=== PATIENT | female | born 1995 | race Caucasian/White ===

== ENCOUNTER 2025-04-22 09:43 | Outpatient (CLI) | payer OTHER, SELFPAY ==
[2025-04-22 10:13] VITALS: BP 112/72; PULSE 55; O2SAT 99
[2025-04-22 10:23] VITALS: RESP 12; TEMP 36.9
[2025-04-22] MEDS: TERBUTALINE 1 MG/ML INJ 0.25 MG SUBCUT (11:08)
--- NOTE | 2025-04-22 12:13 | P.OBO_ITS ---
OB Outpatient HPI History of Present Illness Date Seen: 04/22/25 History of Present Illness: 29 year old at 37 weeks, 1 day gestation, FORTUNATO 05/13, presents for external cephalic version for breech presentation at term. She has received care from Dr. Zhang this . See my clinic consult note for full detail. Bedside ultrasound confirms shelia breech presentation with back anterior and in the midline. Procedure note: External cephalic version The patient and I previously discussed risks of procedure. Bedside ultrasound was confirmed with findings as noted above. Patient was given IM terbutaline 10 minutes prior to procedure to aid in uterine relaxation. With patient in supine position, a clockwise rotation of the body was attempted once, and a counter clockwise rotation was attempted twice. Was able to bring the head to a transverse position, but was unable to move the breech. Fetus reverted to breech presentation after each of these 3 attempts. monitoring before and after the procedure was reassuring. Patient tolerated the procedure well. Meds Home Medications and Allergies Home Medications ?Medication ?Instructions ?Recorded ?Confirmed ?Type docosahexaenoic acid 200 mg See Rx Instructions PO ABIGAIL LY 06/13/24 04/22/25 History capsule ( DHA) ferrous sulfate 325 mg (65 mg 325 mg PO Q1D 04/18/25 0 04/22/25 History iron) tablet Allergies Allergy/AdvReac Type Severity Reaction Status Date / Time aspirin AdvReac Verified 04/22/25 10:25 [facility] Social History Smoking Status: Never smoker History History 1 Elective abortions Para 0 Spontaneous abortions Hx # Term Pregnancies Ectopic pregnancies Hx # Pregnancies Multiple births Number of Living Children 0 OB - H&P: Exam Physical Exam Vital signs: Temp Pulse Resp BP Pulse Ox 98.5 F 55 L 12 112/72 99 04/22/25 10:23 04/22/25 10:13 04/22/25 10:23 04/22/25 10:13 04/22/25 10:13 Assessment and Plan Assessment and plan (1) Breech presentation of fetus: Status: Acute Plan Now status post unsuccessful attempt at external cephalic version. Our plan is now primary for breech presentation. Scheduling request was submitted for May 05, on which day the patient will be 39 weeks gestation. We discussed risks of , including bleeding/hemorrhage, infection, damage to internal organs, thromboembolism, uterine scarring, effect on future pregnancies, likely postoperative restrictions and precautions. Consent form was reviewed with and signed by patient.
--- NOTE | 2025-04-22 12:18 | PC.OBNST ---
NST Note NST Note Start: 04/22/25 09:57 Freq: ONCE Status: Active Protocol: Document 04/22/25 12:16 LLB (Rec: 04/22/25 12:18 LLB No Response) NST Note 1 Para (# of births) 0 EDC 05/12/25 Gestational Age In 37 Weeks & 1 Days Weeks & Days Patient Presented Other with Complaint(s) of Other Complaints ECV Reactive Yes Rosalinda Acevedo Date 04/22/25 Reactive Yes RN Yessenia Arevalo RN Date 04/22/25 OB NST charge Yes Complete NST Note Yes via Write Note The provider's electronic signature indicates the NST is reactive/appropriate for gestational age. *Note to provider: If an addendum is required, open the patient's chart and click on the note under the Nurse/Allied Health tab.
== END 2025-04-22 12:15 | disposition home or self-care (01) ==
LOC: OB CLI 09:51 → OB 10:08
PROVIDERS: PCP Family Medicine; Visit Provider Obstetrics & Gynecology
DX: O32.1XX0 Maternal care for breech presentation, not applicable or unspecified (principal); Z3A.37 37 weeks gestation of pregnancy
CPT/HCPCS: 59025; 59412; 76815; G0463; J3105

== ENCOUNTER 2025-04-23 15:04 | Inpatient (IN) | payer OTHER, SELFPAY ==
[2025-04-23] VITALS (20 sets, daily range): BP systolic 103–133; BP diastolic 62–83; PULSE 47–75; RESP 16–20; TEMP 36.4–37; O2SAT 95–100; BMI 25.8
[2025-04-23 14:46] LABS: Amnisure Rom* POSITIVE
--- NOTE | 2025-04-23 15:13 | P.OBHP_ITS ---
OB - H&P: HPI History of Present Illness Chief complaint: maternity Narrative: Shira Perea is a 29 year old at 37w1d GA who presents for PROM. is complicated by breech malpresentation, s/p unsuccessful external cephalic version yesterday. She has received her care with Dr. Tidwell of [facility]. is otherwise complicated by anemia (result on p.o. iron), left renal pyelectasis measuring 4 mm at 21 weeks and HC<10%. She underwent a level 2 ultrasound due to concerns about the baby's head size and kidneys. The initial scan showed no issues with the head, and a recheck at 32 weeks confirmed that the kidneys were also normal. She has had a normal level 2 anatomy scan, which showed a posterior placenta without previa. Shira notes onset of spontaneous large volume leaking of clear fluid at about 1415 this afternoon. She has had persistent leaking since that time, with only rare sensation of slight cramping. Denies any regular painful contractions or vaginal bleeding. Endorses active movement. Presentation to care, impression of the bedside nurse was for gross rupture of membranes. Patient was reporting some rectal pressure, where a cervical exam was performed confirming dilation of 2cm/thick/-1. AmniSure was obtained and found to be positive. [facility] Social History What is your current living situation?: I presently have a place to live Problems where you live: no known problems In the past 12 months, utilities in danger of being shut off: no In past 12 months, lack of transportation kept you from medical appts, meetings, work, or getting things needed for daily living: no In the past 12 mos, have been you worried that your food would run out before you had money to buy more?: never true In the past 12 mos, the food you bought just didn't last and you didn't have money to buy more?: never true Smoking Status: Never smoker How often does anyone, including family, friends and others, physically hurt you : never How often does anyone, including family, friends and others, insult or talk down to you: never How often does anyone, including family, friends and others, threaten you with harm: never How often does anyone, including family, friends and others, scream or curse at you: never Meds Home Medications and Allergies Home Medications ?Medication ?Instructions ?Recorded ?Confirmed ?Type docosahexaenoic acid 200 mg See Rx Instructions PO ABIGAIL LY 06/13/24 04/23/25 Histo ry capsule ( DHA) ferrous sulfate 325 mg (65 mg 325 mg PO Q1D 04/18/25 0 04/23/25 History iron) tablet Allergies Allergy/AdvReac Type Severity Reaction Status Date / Time aspirin AdvReac Verified 04/22/25 10:25 OB - H&P: Exam Physical Exam: Vital signs: Temp Pulse BP Pulse Ox 98.4 F 64 116/83 100 04/23/25 14:39 04/23/25 14:29 04/23/25 14:29 04/23/25 14:37 Narrative: Physical exam: General: No acute distress Psych: Alert and oriented x3, full affect Heart: Regular rate and rhythm, no murmur rub or gallop Lungs: Clear to auscultation bilaterally Abdomen: Gravid. Otherwise soft and nontender. heart rate: Reactive NST. Baseline of 130 beats per minute, moderate variability, accelerations present, decelerations absent. Cervix: 2/thick/-1 Presentation: Breech malpresentation confirmed by transabdominal ultrasound Amnisure positive Assessment and Plan Assessment and plan (1) Breech presentation of fetus: Status: Acute (2) Premature rupture of membranes: Status: Acute (3) Anemia affecting first : Status: Acute Plan Shira is a 29yo at 37w1d admitted for pre labor rupture of membranes in the setting of breech malpresentation. is complicated by malpresentation s/p unsuccessful ECV yesterday, anemia (resolve with PO iron) and renal pyelectasis (resolved). She is an established patient of [facility]. On arrival, rupture of membranes is confirmed by AmniSure. Patient was reporting some rectal pressure, where nurse did check her cervix and is noted to be 2/long/-1. Reactive NST. Breech presentation confirmed on transabdominal ultrasound. We discussed my recommendation to proceed with an unscheduled primary delivery. Discussed risk/benefits and alternatives to procedure in detail, where written consent was previously signed yesterday. After discussion, she affirms her desire to proceed and I initialed her consent. Her is en route from home, where we will proceed upon his arrival unless there were a change in maternal/ status sooner. All questions answered. - Proceed with primary C/S upon arrival of patient's partner - Obtain type and screen and CBC on admission. - Plan perioperative Ancef and azithromycin in the setting of PROM - EFW by US on 03/21 was 73%ile - Dr. Triplett of [facility] to attend delivery in the setting of unscheduled and breech presentation
[2025-04-23 15:34] LABS: Hematocrit 36.2 % (33.0-51.0); Hemoglobin* 12.2 gm/dL (12.0-16.0); Immature Granulocytes Abs Auto 0.11 K/uL (0.00-0.30); Immature Granulocytes Pct Auto 1.1 %; Lymphocytes Absolute Auto 2.26 K/uL (0.90-2.90); Mean Corpuscular HGB Conc 34 gm/dL (32-36); Mean Corpuscular Hemoglobin 34 pg (26-34); Mean Corpuscular Volume 101 fL (80-100); RDW Coefficient of Variation % 12.8 % (11.5-15.5); Red Blood Count 3.60 m/uL (4.00-5.20); Slide Review Reflex No; White Blood Count* 10.38 K/uL (4.50-11.00)
[2025-04-23] MEDS: AZITHROMYCIN 500 MG in 0.9 % SODIUM CHLORIDE 250 ml 250 ML 255 MG IVPB (16:02)
--- NOTE | 2025-04-23 16:11 | P.ANES_ITS ---
Anesthesia Charges Start Date/Time Anesthesia Start Date: 04/23/25 Anesthesia Start Time: 15:45 Stop Date/Time Anesthesia Stop Date: 04/23/25 Anesthesia Stop Time: 17:13 Summary Emergency: ANNE MARIE Coding CPT Codes CPT Codes: ANESTH CS DELIVERY - 22500 ([id number]) P2 - PATIENT W/MILD SYST DISEASE, QK - MANAGER COMMERCIAL 2-4 CNCRNT ANES PROC, QX - ROUGE SIFTER SVC W/ MD MED DIRECTION Additional Codes: Summary - Emergency: ANNE MARIE ([id number])
--- NOTE | 2025-04-23 16:11 | W.ANESCHARGE ---
Anesthesia Charges Start Date/Time Anesthesia Start Date: 04/23/25 Anesthesia Start Time: 15:45 Stop Date/Time Anesthesia Stop Date: 04/23/25 Anesthesia Stop Time: 17:13 Summary Emergency: ANN EMARIE Coding CPT Codes CPT Codes: ANESTH CS DELIVERY - 22003 ([id number]) P2 - PATIENT W/MILD SYST DISEASE, QK - RN TRANSPLANT 2-4 CNCRNT ANES PROC, QX - SIGNS SALES REPRESENTATIVE SVC W/ MD MED DIRECTION Additional Codes: Summary - Emergency: ANNE MARIE ([id number])
--- NOTE | 2025-04-23 16:29 | SUR.OPER ---
PATIENT BROUGHT TO OR #5 PER AMBULATION BY OB RN Patient positioned supine on OR #5 bed WITH A BUMP UNDER THE RIGHT HIP. Final approval of positioning by surgeon.
--- NOTE | 2025-04-23 16:30 | AC.NBPDANNP1 ---
Provider Attendance Delivery Provider Attend Delivery Date Seen: 04/23/25 Delivery Attendance Summary Summary: Baby rip Perea born at 37.2w GA via primary section for breech presentation. Called to Center for primary after SROM at home. Patient had failed version yesterday (04/22). Apgars appropriate. Spontaneous breathing with only stimulation. Baby stayed with parents. Gestational Age at Weeks Gestation At Delivery (32.0 - 42.0): 37.2 Delivery Amniotic membrane fluid description: Clear Gender: Female
--- NOTE | 2025-04-23 16:47 | SUR.OPER ---
SURGEON DECLINES OFFER TO SEND THE PLACENTA TO PATHOLOGY.
--- NOTE | 2025-04-23 16:59 | P.OBPRC_ITS ---
Procedure Time Seen by Provider: 16:59 Date of procedure: 04/23/25 Pre-op diagnosis: Breech malpresentation, prelabor rupture of membranes Post-op diagnosis: same Procedure Done: Global Will [facility] bill your pro fee for this procedure?: Yes Blood Loss Measurement Type: QBL (516) Bakri Used: No IV fluids (mL): 900 Urine Output (mL): 175 Urine Output Comment: yellow, clear Surgeon: Matt Moreno MD Anesthesia Type: Spinal Findings: Liveborn female infant, shelia breech presentation Unremarkable uterus, bilateral fallopian tubes and ovaries Procedure Name: Primary delivery Procedure Description: Patient was taken to the operating room with IV running. She received cefazolin and azithromycin in preoperative prophylaxis. Spinal anesthesia was administered. Flaherty catheter was inserted. She was prepped and draped in the usual sterile fashion. Anesthesia was tested and found to be adequate. A low-transverse skin incision was made with a scalpel and carried through to the underlying layer of fascia with the scalpel. The subcutaneous fat was dissected off the underlying fascia with Bovie and blunt dissection. The fascia was nicked in the midline with a scalpel, and this incision was extended laterally with scissors. The rectus muscles were in the midline. Pe ritoneum was identified and entered bluntly. Bovie was used to widen this opening laterally. Derek O retractor was inserted and tightened down, providing excellent visualization of the lower uterine segment. The bladder reflection was found to be well below the planned site for hysterotomy. Low-transverse uterine incision was made with a scalpel. Incision was widened bluntly. The infant's butt was grasped through the hysterotomy in direct sacrum anterior position and elevated to the hysterotomy. Fundal pressure was applied in order to facilitate delivery of the body, where legs were noted to be extended where Pinard maneuver was utilized to gently facilitate flexion of the knee and delivery of the lower extremities. Body was delivered to the level of the scapula, where body was rotated and the anterior arm was swept down and out to deliver the right arm via Loveset maneuver. Baby was rotated 180 degrees, where the same was performed to deliver the left arm. Fundal pressure was again applied and the head was flexed by applying gentle pressure on the maxilla where the head was delivered atraumatically.. No nuchal cord was noted. Baby was stimulated, where good tone was noted with grimace but no spontaneous cry at 30 seconds. Cord was clamped and cut after 30 seconds. was handed off to attending Pediatrics provider and nurses. The placenta was delivered with gentle traction on the cord. The uterus was cleaned of all clots and debris with the dry lap pad. The hysterotomy was reapproximated with 0 Vicryl in a running, locked fashion. Second layer of the same suture was used in imbricating fashion to obtain hemostasis. Excellent uterine tone was noted. The adnexa were examined and noted to be normal in appearance. The cul-de-sac and gutters were cleansed with dampened laparotomy sponge, removing any further clots and debris. The Derek O retractor was removed. The hysterotomy was reexamined and found to be hemostatic. The rectus muscles were examined and made hemostatic with electrocautery as needed. The fascia was reapproximated with 0 Vicryl in a running fashion. Subcutaneous fat was irrigated and Bovie used on oozing vessels. The subcutaneous fat was reapproximated with 2-0 viryl suture in an interrupted fashion. The skin was closed with a subcuticular stitch of 3-0 monocryl. Surgical glue was applied above this. Patient tolerated procedure well was taken to recovery area in stable condition. Surgical debrief was completed. details: - Liveborn female fetus - weight: 7 lb 14 oz, large for gestational age - APGARs were 8 and 9 at 1 and 5 minutes respectively Complications: None Pathology: none sent Surgery Debrief Performed: Yes Condition: stable Disposition: floor
--- NOTE | 2025-04-23 17:34 | W.PM.NB ---
Nerve Block Nerve Block Time Seen by Provider: 16:56 Date Seen: 04/23/25 Type of block requested by surgeon for post-operative analgesia: TAP Side: bilateral Time out performed: Yes Verification of patient name: Yes Verification of date of : Yes Name of person performing procedure: Yuridia Guidry Continuous monitoring Was continuous monitoring of O2 sat, B/P, cafeteria monitor, recorded every 15 minutes?: Yes Procedure Checklist: sterile prep, needles and gloves Ultrasound guided. Images saved: Yes Medications given in 5ml increments after negative aspiration: Marcaine %: 0.25 mL: 30 Needle gauge: 20 and Exparel mL: 10 Needle gauge: 20 Patient tolerated procedure well: Yes Block Charges Block Charge (with Pro Fee): TAP Bilateral Use of Ultrasound Machine for Block: Yes- US Guidance/pain block
--- NOTE | 2025-04-23 17:36 | P.ANES_ITS ---
Anesthesia Charges Start Date/Time Anesthesia Start Date: 04/23/25 Anesthesia Start Time: 15:45 Stop Date/Time Anesthesia Stop Date: 04/23/25 Anesthesia Stop Time: 17:13 Summary Emergency: VOICE PATHOLOGIST Coding CPT Codes CPT Codes: ANESTH CS DELIVERY - 45331 ([id number]) P2 - PATIENT W/MILD SYST DISEASE, QK - MICROGRINDER OPERATOR 2-4 CNCRNT ANES PROC, QX - VOICE PATHOLOGIST SVC W/ MD MED DIRECTION Additional Codes: Summary - Emergency: VOICE PATHOLOGIST ([id number])
--- NOTE | 2025-04-23 17:36 | W.ANESCHARGE ---
Anesthesia Charges Start Date/Time Anesthesia Start Date: 04/23/25 Anesthesia Start Time: 15:45 Stop Date/Time Anesthesia Stop Date: 04/23/25 Anesthesia Stop Time: 17:13 Summary Emergency: SLUMBER ROOM ATTENDANT Coding CPT Codes CPT Codes: ANESTH CS DELIVERY - 34503 ([id number]) P2 - PATIENT W/MILD SYST DISEASE, QK - TAX RECORD CLERK 2-4 CNCRNT ANES PROC, QX - SLUMBER ROOM ATTENDANT SVC W/ MD MED DIRECTION Additional Codes: Summary - Emergency: SLUMBER ROOM ATTENDANT ([id number])
[2025-04-24 03:10] VITALS: BP 119/66; PULSE 50; RESP 16; TEMP 36.7; O2SAT 96
[2025-04-24] MEDS: SODIUM CHLORIDE 0.9 % (FLUSH) 10 ML SYRINGE IVF (05:30)
[2025-04-24 06:16] LABS: Hemoglobin* 11.4 gm/dL (12.0-16.0)
--- NOTE | 2025-04-24 07:15 | P.OBPN_ITS ---
OB - PN:Subj Subjective Date Seen: 04/24/25 Narrative: Shira is a 29 year old who was admitted for SROM and proceeded to have a primary ? for breech.The patient feels well.? The pain is well controlled with current medications.? She has no new complaints.? Urinary output is adequate and she is voiding without difficulty.? Has a good appetite, is tolerating a general diet, is passing flatus, and has not had a bowel movement.? Has scant amount of rubra lochia.? She is ambulating slowly. She is and reports it is going well.? OB - PN: Obj Exam Physical Exam: Vital signs: Temp Pulse Resp BP Pulse Ox O2 Del Method 98.1 F 50 L 16 119/66 96 Room Air 04/24/25 03:10 04/24/25 03:10 04/24/25 03:10 04/24/25 03:10 04/24/25 03:10 04/24/25 03:10 Narrative: GENERAL APPEARANCE:? normal affect, alert, no distress MOOD:? appropriate CHEST:? clear to auscultation HEART:? regular rate and rhythm ABDOMEN:? soft, non-tender the uterine fundus is 1 cm below Umbilicus, Midline and is appropriate for the stage of recovery. EXTREMITIES:? normal and mild edema Incision: Surgical dressing intact with no surrounding erythema and no discharge on dressing. OB - PN: Obj Data Labs Labs: Laboratory Results - last 24 hr 04/23/25 04/23/25 04/24/25 14:42 15:13 05:54 WBC 10.38 RBC 3.60 L Hgb 12.2 11.4 L Hct 36.2 MCV 101 H MCH 34 MCHC 34 RDW Coeff of Tom 12.8 Plt Count 249 Neut % (Auto) 67.2 Lymph % (Auto) 21.8 [place] % (Auto) 9.0 Eos % (Auto) 0.5 Baso % (Auto) 0.4 Neut # (Auto) 6.99 Lymph # (Auto) 2.26 [place] # (Auto) 0.90 Eos # (Auto) 0.05 Baso # (Auto) 0.04 Abs Immat Gran (auto) 0.11 Imm/Tot Granulo (auto) 1.1 Membrane Rupture POSITIVE Blood Type AB Positive Antibody Screen NEGATIVE OB - PN: A/P Delivery Assessment and Plan (1) care and examination of lactating mother: Status: Acute (2) delivery indicated due to breech presentation: Status: Acute (3) Anemia affecting first : Status: Acute Plan Comments: PP day #1 Routine care May see as desired Anticipate discharge 04/25/2025
[2025-04-24 07:52] VITALS: BP 108/62; PULSE 51; RESP 16; TEMP 36.8; O2SAT 96
[2025-04-24] MEDS: ACETAMINOPHEN 500 MG TABLET 1000 MG PO ×3 (07:57→20:24)
[2025-04-24] MEDS: DOCUSATE SODIUM 100 MG CAPSULE PO (07:58)
[2025-04-24 12:16] VITALS: BP 115/70; PULSE 51; RESP 16; TEMP 36.4; O2SAT 98
[2025-04-24 15:10] VITALS: BP 111/74; PULSE 53; RESP 16; TEMP 36.8; O2SAT 100
[2025-04-24] MEDS: IBUPROFEN 600 MG TABLET PO (23:44)
[2025-04-24 23:59] VITALS: BP 100/61; PULSE 59; RESP 20; TEMP 36.5; O2SAT 99
[2025-04-25] MEDS: ACETAMINOPHEN 500 MG TABLET 1000 MG PO ×2 (03:28→10:08)
[2025-04-25] MEDS: IBUPROFEN 600 MG TABLET PO (06:21)
[2025-04-25 08:00] VITALS: BP 110/71; PULSE 60; RESP 16; TEMP 37.1; O2SAT 97
[2025-04-25] MEDS: DOCUSATE SODIUM 100 MG CAPSULE PO (08:05)
--- NOTE | 2025-04-25 08:33 | PM.OBDSVD1 ---
DS: Providers Provider Date Seen: 04/25/25 Date of admission: 04/23/25 15:04 Primary care physician: Dalia Tidwell DO Admitting Clinician: Raysa Moreno MD Attending Physician on discharge: Pete Suarez CNM Date of Discharge: 04/25/25 DS: Diagnosis Discharge Diagnosis (1) Status post delivery: Status: Acute (2) care and examination of lactating mother: Status: Acute Exam Narrative: Exam Narrative: VSS. ?Afebrile GENERAL APPEARANCE: ?normal affect, alert, no distress MOOD: ?appropriate HEENT: normocephalic, neck supple, full ROM CHEST: ?Symmetrical chest wall movement. ?Normal respiratory effort. ?Clear to auscultation HEART: ?regular rate and rhythm ABDOMEN: ?soft, non-tender. Uterine fundus is firm, at Umbilicus, Midline and is appropriate for the stage of recovery. ?Bowel sounds present. EXTREMITIES: ?normal and no edema SKIN: warm, dry. ? ?Incision clean/dry/well approximated. ?No signs of infection noted. Const: Vital Signs, click to edit/add: Vital Signs - 24 hr 04/24/25 12:16 04/24/25 15:10 04/24/25 23:59 Temperature 97.5 F L 98.2 F 97.7 F Pulse Rate [Pulse Oximeter] 51 L 53 L 59 L Respiratory Rate 16 16 20 Blood Pressure [Le ft Arm] 115/70 111/74 100/61 Pulse Oximetry 98 100 99 Oxygen Delivery Me thod Room Air Room Air Room Air 04/25/25 08:00 Temperature 98.7 F Pulse Rate [Pulse Oximeter] 60 Respiratory Rate 16 Blood Pressure [Le ft Arm] 110/71 Pulse Oximetry 97 Oxygen Delivery Me thod Room Air Documenting provider has reviewed patient's vital signs: yes OB - DS: Summary Hospital Course Hospital Course: Shira is a 29 y.o. who was admitted to [facility] for SROM with breech position. ?She had an uncomplicated .?The patient feels well. ?The pain is well controlled with current medications. ?She has no new complaints. ?She is breast feeding and reports things are going well.? the patient has done well.? Vitals have been stable.? She has remained afebrile.? Has a good appetite, is tolerating a general diet. ?She is voiding without difficulty.? She is passing gas and has not had a bowel movement.? She is ambulating and denies any dizziness.? Has Small amount of rubra lochia. ?She is planning condoms for prevention. Peripartum Data delivery method: Primary C/S; Non-Labored Procedures: Procedures Operation Date: 04/23/25 15:45 Actual Procedure Side Surgeon p PRIMARY Section Raysa Moreno MD complications: none Gender: Female Infant Discharge Plan: Home Status at Discharge Functional status at discharge: independent ambulation Overall status at discharge: patient is progressing back to baseline Time Spent with Patient Time attestation: Total time spent providing and/or coordinating discharge services: Time spent: Less than 30 minutes Discharge Plan Discharge Disposition: Home, Self-Care Date of Admission: 04/23/25 15:04 Attending Provider on Discharge: Pete Suarez Primary Care Provider: Dalia Tidwell Condition: Stable Anticipated Discharge Date/Time: 04/25/25 12:00 Discharge Medications: New docusate sodium 100 mg Capsule 100 mg PO DAILY Qty: 90 0RF ibuprofen 600 mg Tablet 600 mg PO Q6H PRN (Reason: Pain) Qty: 60 0RF oxycodone 5 mg capsule 5 - 10 mg PO Q6H PRN (Reason: pain) Qty: 10 0RF acetaminophen 500 mg Tablet 1,000 mg PO Q6H PRN (Reason: Pain) Qty: 0 0RF Continued DHA 200 mg capsule See Rx Instructions PO DAILY Rx Instructions: as directed orally daily; ferrous sulfate 325 mg (65 mg iron) tablet 325 mg PO Q1D Discharge Orders: Discharge Order (Routine); Ordered 04/25/25 Ordered By: Pete Suarez Patient Education: OB Over the Counter Medication Information, OB /Breast Feeding Additional Instructions: Discharge instructions were reviewed with the patient including signs and symptoms of infection and home going medications Lifting Restrictions: 20 pounds for 6 weeks Do not submerge incision under water X 2 weeks? Nothing vaginally for 6 weeks: no tampons or intercourse Do not drive while taking narcotic pain medication(s) Off Work or School for 8 weeks 2-week post-operative visit with OB: incision check, with provider who performed section is preferred 6-week visit for an annual exam with your Family Medicine Provider at [facility]. consultation services are available to all mothers and babies for the first year after delivery.? To make an appointment, please call [phone]. Activity Level: Activity as Tolerated Discharge Diet: Regular Follow Up Appointments: [facility] [Provider Group] Dalia Tidwell DO [Primary Care Provider, Family Practice] Forms: Opticul Diagnosticsth Info Instructions
[2025-04-25 10:30] VITALS: BP 112/71; PULSE 55; RESP 14; O2SAT 98
[2025-04-25] MEDS: SIMETHICONE 80 MG TAB.CHEW PO (10:38)
== END 2025-04-25 14:54 | disposition home or self-care (01) | DRG 788 ==
LOC: OB OUT 15:05 → OB 15:05
PROVIDERS: Admitting Provider Obstetrics & Gynecology; PCP Family Medicine; Visit Provider Obstetrics & Gynecology
PROC: 10D00Z1 Extraction of Products of Conception, Low, Open Approach (ICD-10-PCS; CPT 59514; principal; 2025-04-23 15:45)
DX: O32.1XX0 Maternal care for breech presentation, not applicable or unspecified (principal); O42.02 Full-term premature rupture of membranes, onset of labor within 24 hours of rupture; G89.18 Other acute postprocedural pain; O99.02 Anemia complicating childbirth; D64.9 Anemia, unspecified; Z3A.37 37 weeks gestation of pregnancy; Z37.0 Single live birth
CPT/HCPCS: 01961; 36415; 64488; 76815; 76942; 84112; 85018; 85025; 86592; 86850; 86900; 86901; 99140; A4314; A9270; J0456; J0665; J0666; J0690; J1100; J1885; J2371; J2405; J2590; J7050

== ENCOUNTER 2025-05-14 14:44 | Outpatient (CLI) | payer OTHER, SELFPAY ==
--- NOTE | 2025-05-14 16:24 | P.LACCB_ITS ---
Consult Note - Mom Date of Visit Date of visit: 05/14/25 Reason for consultation: Assistance Needed Visit Code: Visit Patient's Information Phone number: [phone] Para: 1 Allergies aspirin Adverse Reaction (Verified 05/07/25 12:53) Work Plans: return to work at 12 weeks Delivery Information Delivery type: Primary C/S; Non-Labored Gestational Age: 37+2 Gestational Weight For Age: AGA Weight: 3.572 kg Discharge Weight: 3.366 kg Percentage weight loss: 5.8 Baby's Information Baby's Age at Visit: 21 days Baby's Provider or Clinic: [facility] Jaundice: No Past Experience Past Experience: No Current Frequency of Day Feedings: every 2-3 hours Frequency of Night Feedings: one 4hr stretch, then every 2-3 hrs Both Breasts: No (offered, but only takes one side) Suck: strong Latch: deep, comfortable Length of Time: 10-15 minutes Goals: about 10 months Pumping Pumping: Yes Quantity Pumped: 1-3 oz Haakaa one breast while nurses the other side Supplementing EBM Supplement: No Formula Supplement: No Baby Elimination Number of Wet Diapers a Day: ea feeding Number of BM a Day: 6 or more/day; yellow, seedy Breast/Nipple Condition Breast Information: Breasts are symmetrical with rounded lower quadrants, intramammary distance is less than 1.5 inches. No erythema. Nipples are supple, everted prior to feeding. Breast Shape: Round Engorgement: No Maternal Nipple Condition - Left: Common Nipple Maternal Nipple Condition - Right: Common Nipple Sore Nipples: No Baby Assessment Skin: Normal Tongue/frenulum: Restricted mid-range (very mild) Palate: Average Lips: Relaxed, Symmetrical, Tight labial frenulum and Other (sucking blister) Jaw Alignment: Symmetrical Mucosa: Armour, moist Onsite Observation Pre-Feed weight: 4.252 kg Post-Feed weight: 4.321 kg Milk Transferred (mL): 69 Position: Cross cradle Attachment/latch-on achieved: Easily Suck pattern: Suck burst and normal rest Swallow: Audible, consistent and Gulping Behavior following feed: Alert, content Pre-Nursing Left Nipple: Within Normal Limits Pre-Nursing Right Nipple: Within Normal Limits Post-Nursing Right Nipple: Within Normal Limits Assessments/Interventions Assessments/Interventions: Ayden latched easily to mom's RIGHT breast; came off once at the beginning and the relatched easily and sustained nursing well. No clicking sounds heard. Near the end of the feeding, ayden is found to have some accessory muscle use of her upper lip likely leading to her sucking blister. Upper lip: lip flanges out, almost over nostrils, frenulum does morales slightly in flanged position, able to get finger under upper lip. 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 Discussed treatment options: of watching and waiting, refer to Ped Dentist for evaluation. Since mom having no pain with nursing, she is electing to wait on a referral. Will call back if she has additional questions or concerns. of note, family has not tried bottle feeding baby yet. Will add this in over the next week or so. if there are difficulties with bottle feeding, consider referral at that time for transition to both nursing and bottle feeding. Education provided: Supply/demand nature of milk supply, Alternative feeding methods (SNS, cup, finger feeding, bottling) (paced bottle feeding discussed as well as bottle options), Pumping for milk management (discussed pumping routine and volumes; at risk of oversupply if continue with brad at each feeding. ) and Milk collection, storage Follow-Up Suggested follow up: Appointment as needed Time Spent Time spent with patient (min): 60 Meds Home Medications and Allergies Home Medications ?Medication ?Instructions ?Recorded ?Confirmed ?Type docosahexaenoic acid 200 mg See Rx Instructions PO ABIGAIL LY 06/13/24 05/07/25 H istory capsule ( DHA) ferrous sulfate 325 mg (65 mg 325 mg PO Q1D 04/18/25 0 05/07/25 History iron) tablet acetaminophen 500 mg tablet 1,000 mg (2 x 500 mg) PO Q 6H PRN 04/25/25 05/07/25 Rx Pain #0 tabs docusate sodium 100 mg capsule 100 mg PO DAILY #90 cap s 04/25/25 05/07/25 Rx ibuprofen 600 mg tablet 600 mg PO Q6H PRN Pain #60 t abs 04/25/25 05/07/25 Rx Allergies Allergy/AdvReac Type Severity Reaction Status Date / Time aspirin AdvReac Verified 05/07/25 12:53
== END 2025-05-14 14:45 | disposition home or self-care (01) ==
PROVIDERS: PCP Family Medicine; Visit Provider Obstetrics & Gynecology
DX: Z39.1 Encounter for care and examination of lactating mother (principal)
CPT/HCPCS: G0463